=== PATIENT | male | born 1955 | race Hispanic/Latino ===

== ENCOUNTER 2020-05-09 18:37 | Emergency (ER) | payer OTHER ==
[2020-05-10 15:34] LABS: SARS-CoV-2 MS2 Positive; SARS-CoV-2 N Gene Positive; SARS-CoV-2 S Gene Positive; SARS-CoV-2 orf1ab Positive
== END 2020-05-09 19:08 | disposition home or self-care (01) ==
LOC: ERS 18:37
DX: Z53.21 Procedure and treatment not carried out due to patient leaving prior to being seen by health care provider (principal)
CPT/HCPCS: 87635; U0003

== ENCOUNTER 2020-05-28 09:02 | Emergency (ER) | payer BC, OTHER ==
[2020-05-28 09:57] LABS: #Lymphocytes 0.7 thou/uL (1.20-3.40); #Monocytes 0.5 thou/uL (0.11-0.59); #Neutrophils 6.7 thou/uL (1.40-6.50); %Eosinophils 0.1 % (0.0-10.0); %Monocytes 5.8 % (0.0-10.0); %Neutrophils 85.2 % (42.0-75.0); Mean Corpuscular HGB CONC 32.3 g/dL (32.0-36.0); Mean Corpuscular Volume 95.9 fL (78.0-98.0); Mean Platelet Volume 7.4 fL (7.4-10.4); Platelet Count 541 thou/uL (130-400); RBC Distribution Width 11.6 % (11.5-14.5); Red Blood Cell (RBC) Count 3.54 mill/uL (4.70-6.10); White Blood Cell (WBC) Count 7.9 thou/uL (4.8-10.8)
--- NOTE | 2020-05-28 10:10 | RAD ---
RADIOGRAPH CHEST 1 VIEW: DATE: 05/28/2020 TIME: 10:02 AM HISTORY: 64-year-old male COVID-19 positive male with dyspnea and cough COMPARISON: 05/24/2020 and 05/17/2020 FINDINGS: Previously demonstrated diffuse nodular infiltrates have coalesced into regions of consolidations. In filtrates involve almost all lung reed bilaterally, except for relative sparing of left apex. Magnification of cardiac shadow. Possible additional cardiomegaly New small bilateral pleural effusio ns. Left subclavian dual lead transvenous permanent pacemaker. No large pneumothorax identified IMPRESSION: 1) interval worsening of now severe diffuse bilateral infiltrates: Evidence for worsening of pneumoni a 2. Possible cardiomegaly and small bilateral pleural effusions raises the possibility of superimposed congestive heart failure
[2020-05-28 10:22] LABS: ALT (SGPT) 17 U/L (8-55); AST (SGOT) 17 U/L (5-34); Albumin 3.1 g/dL (3.4-4.8); Alkaline Phosphatase 75 U/L (40-110); Anion Gap 14 mmol/L (10-20); BUN (Urea Nitrogen) 19 mg/dL (8.4-25.7); Bilirubin, Total 0.3 mg/dL (0.2-1.2); Calc. Creatinine Clearance 0 mL/min (70-130); Calcium 8.4 mg/dL (7.8-10.44); Carbon Dioxide 25 mmol/L (23-31); Chloride 106 mmol/L (98-107); Estimated GFR-MDRD 82; Globulin 2.7 g/dL (2.4-3.5); Glucose 342 mg/dL (80-115); Potassium 4.9 mmol/L (3.5-5.1); Protein, Total 5.8 g/dL (5.8-8.1); Sodium 140 mmol/L (136-145)
[2020-05-28 10:37] LABS: CKMB 1.4 ng/mL (0-6.6)
[2020-05-28] MEDS ORDERED: Aspirin Chewable 81 MG TAB ONE (12:14)
[2020-05-28] MEDS ORDERED: Insulin Regular 300 UNITS/3 ML VIAL ONE (12:14)
[2020-05-28] MEDS ORDERED: Ondansetron ODT 4 MG TAB ONE (12:14)
[2020-05-28] MEDS ORDERED: Nitroglycerin 2% Ointment 1 INCH/1 GM Packet ONE ×2 (12:14→12:36)
== END 2020-05-28 13:27 | disposition short-term general hospital (02) ==
LOC: ERS 09:02
DX: U07.1 COVID-19 (principal); R79.89 Other specified abnormal findings of blood chemistry; E11.9 Type 2 diabetes mellitus without complications; K21.9 Gastro-esophageal reflux disease without esophagitis; I10 Essential (primary) hypertension; E78.5 Hyperlipidemia, unspecified; I25.10 Atherosclerotic heart disease of native coronary artery without angina pectoris; Z79.899 Other long term (current) drug therapy; Z79.82 Long term (current) use of aspirin; Z79.84 Long term (current) use of oral hypoglycemic drugs; R11.10 Vomiting, unspecified
CPT/HCPCS: 36415; 36416; 71045; 80053; 82553; 83605; 83880; 84484; 85025; 93005; 96374; J1815; Q0162

== ENCOUNTER 2022-08-05 18:38 | Emergency (ER) | payer MEDICARE, BC | END 2022-08-05 20:35 | disposition home or self-care (01) | LOC: ERS 18:38 | DX: R07.2 Precordial pain (principal); E11.9 Type 2 diabetes mellitus without complications; I25.10 Atherosclerotic heart disease of native coronary artery without angina pectoris; K21.9 Gastro-esophageal reflux disease without esophagitis; I10 Essential (primary) hypertension; E78.5 Hyperlipidemia, unspecified; I25.2 Old myocardial infarction; V43.52XA Car driver injured in collision with other type car in traffic accident, initial encounter | CPT/HCPCS: 71045 ==

== ENCOUNTER 2023-07-28 09:21 | Emergency (ER) | payer MEDICARE, BC ==
[2023-07-28 10:16] LABS: #Eosinphils 0.1 thou/uL (0.0-0.7); #Monocytes 0.4 thou/uL (0.11-0.59); #Neutrophils 2.4 thou/uL (1.40-6.50); %Eosinophils 3.1 % (0.0-10.0); %Lymphocytes 29.4 % (21.0-51.0); %Neutrophils 56.5 % (42.0-75.0); Hematocrit 43.8 % (42.0-52.0); Hemoglobin 14.5 g/dL (14.0-18.0); Mean Corpuscular HGB CONC 33.1 g/dL (32.0-36.0); Mean Corpuscular Hemoglobin 30.2 pg (27.0-31.0); Mean Corpuscular Volume 91.3 fl (78.0-98.0); Mean Platelet Volume 10.8 fL (7.4-10.4); Platelet Count 245 10x3/uL (130-400); RBC Distribution Width 12.3 % (11.5-14.5); White Blood Cell (WBC) Count 4.2 10x3/uL (4.8-10.8)
[2023-07-28 10:37] LABS: ALT (SGPT) 11 U/L (8-55); AST (SGOT) 16 U/L (5-34); Albumin 4.2 g/dL (3.4-4.8); Alkaline Phosphatase 98 U/L (40-110); Anion Gap 13 mmol/L (10-20); BUN (Urea Nitrogen) 19 mg/dL (8.4-25.7); Bilirubin, Total 0.4 mg/dL (0.2-1.2); Calc. Creatinine Clearance 0 mL/min (70-130); Calcium 9.5 mg/dL (7.8-10.44); Carbon Dioxide 26 mmol/L (23-31); Chloride 100 mmol/L (98-107); Estimated GFR 66; Globulin 2.9 g/dL (2.4-3.5); Glucose 307 mg/dL (80-115); Protein, Total 7.1 g/dL (5.8-8.1); Sodium 135 mmol/L (136-145)
[2023-07-28] MEDS ORDERED: Nitroglycerin 2% Ointment 1 INCH/1 GM Packet ONE (12:09)
[2023-07-28] MEDS ORDERED: Aspirin Chewable 81 MG TAB ONE (12:09)
[2023-07-28 12:56] LABS: Troponin I 0.052 ng/mL (< 0.028)
== END 2023-07-28 13:58 | disposition short-term general hospital (02) ==
LOC: ERS 09:21
DX: R07.9 Chest pain, unspecified (principal); I10 Essential (primary) hypertension; E11.65 Type 2 diabetes mellitus with hyperglycemia; R79.89 Other specified abnormal findings of blood chemistry; I25.10 Atherosclerotic heart disease of native coronary artery without angina pectoris; K21.9 Gastro-esophageal reflux disease without esophagitis; E78.5 Hyperlipidemia, unspecified
CPT/HCPCS: 36415; 71045; 80053; 83880; 84484; 85025; 93005

== ENCOUNTER 2023-12-02 18:41 | Emergency (ER) | payer MEDICARE, BC ==
[2023-12-02] MEDS ORDERED: Acetaminophen 500 MG TAB ONE (19:20)
[2023-12-02 21:21] LABS: SARS-CoV-2 NAA Rapid Test Not Detected (NotDetected)
== END 2023-12-02 20:58 | disposition home or self-care (01) ==
LOC: ERS 18:41
DX: B34.9 Viral infection, unspecified (principal); I25.10 Atherosclerotic heart disease of native coronary artery without angina pectoris; E11.9 Type 2 diabetes mellitus without complications; K21.9 Gastro-esophageal reflux disease without esophagitis; I10 Essential (primary) hypertension; E78.5 Hyperlipidemia, unspecified; Z79.899 Other long term (current) drug therapy; Z79.4 Long term (current) use of insulin
CPT/HCPCS: 0240U; 71045